=== PATIENT | male | born 1930 | race Caucasian/White ===

== ENCOUNTER 2016-11-25 20:04 | Inpatient (IN) ==
[2016-11-25 21:56] LABS: Basophils # 0.1 K/mcL (0.0-0.2); Basophils % 1.1 %; Eosinophils # 0.2 K/mcL (0.0-0.6); Eosinophils % 3.4 %; Hematocrit 41.7 % (37.5-50.1); Hemoglobin 13.3 g/dL (12.9-16.9); Immature Granulocytes % 0.2 % (0-4); Lymphocytes # 1.1 K/mcL (0.6-4.6); Lymphocytes % 24.6 %; Mean Corpuscular HGB Conc 31.9 g/dL (31.6-35.5); Mean Corpuscular Hemoglobin 29.3 pg (28.0-33.3); Mean Corpuscular Volume 91.9 fL (83.0-100.0); Mean Platelet Volume 9.8 fL (9.4-12.4); Monocytes # 0.3 K/mcL (0.0-1.3); Monocytes % 5.8 %; Neutrophils # 2.9 K/mcL (1.6-8.9); Platelet Count 230 K/mcL (140-400); Red Blood Count 4.54 M/mcL (4.19-5.50); Red Cell Distribution Width 12.5 % (11.5-14.5); Segmented Neutrophils % 64.9 %
[2016-11-25 22:10] LABS: Alanine Aminotransferase 20 Units/L (0-55); Albumin 3.5 g/dL (3.5-5.0); Albumin/Globulin Ratio 1.1 (1.1-2.2); Alkaline Phosphatase 86 Units/L (38-126); Amylase 67 Units/L (25-125); Aspartate Amino Transferase 26 Units/L (5-34); BUN/Creatinine Ratio 14 (6-26); Bilirubin,Direct 0.4 mg/dL (0.0-0.5); Bilirubin,Indirect 0.5 mg/dL (0.0-1.2); Bilirubin,Total 0.9 mg/dL (0.2-1.2); Blood Urea Nitrogen 11 mg/dL (8-26); Calcium 9.5 mg/dL (8.6-10.8); Carbon Dioxide 30 mEq/L (19-29); Chloride 101 mEq/L (98-109); Globulin 3.1 g/dL (2.4-3.5); Glucose 95 mg/dL (70-99); Lipase 24 Units/L (8-78); Osmolality,Calculated 287 (280-300); Potassium 4.1 mEq/L (3.5-4.5); Sodium 139 mEq/L (136-145); Total Protein 6.6 g/dL (6.0-8.3); eGFR For African Americans > 60 (> 60); eGFR For Non-African Americans > 60 (> 60)
[2016-11-26] MEDS ORDERED: Piperacillin/Tazobactam 3.375 GM in D5% in Water (Mini-Bag+) 100 ML IVPB ONE (01:24)
--- NOTE | 2016-11-26 02:24 | Emergency Department Note ---
Disposition Clinical Impression: Bowel perforation, Abdominal abscess Abdominal pain Qualifiers: Abdominal location: generalized Qualified Code(s): R10.84 - Generalized abdominal pain Disposition: Admitted As Inpatient Condition: Good Referrals: NONE,PCP [Primary Care Provider] - Forms: Work/School Release, ED Satisfaction Letter Time of Disposition: 02:29 General Adult HPI - General Chief complaint: ED Abdominal Pain Stated complaint: Infected Colon Time Seen by Provider: 11/26/16 01:00 Source: patient Mode of arrival: ambulatory Limitations: no limitations Nursing Notes Reviewed: Yes Vital Signs Reviewed: Yes - History of Present Illness HPI Narrative: Patient presents emergency room at the request the primary care provider's office. Patient was seen in the facility this afternoon for abdominal discomfort that has been present for several weeks. That CT imaging and labs performed today. There is concerning findings on CT scan may recommend patient come in emergency room. Family denies any other symptoms or complaints. Onset (ago): week(s) Location: abdomen Radiation: abdomen Pain Severity: mild Pain Scale: 3 Quality: aching Consistency: constant Improves with: nothing Worsens with: nothing Associated symptoms: Reports: denies other symptoms Treatments Prior to Arrival: none - Related Data Home Medications Medication Instructions Recorded Confirmed Aspirin [Lo-Dose Aspirin EC] 81 mg PO DAILY 12/04/15 03/28/16 Ferrous Sulfate [Iron] 325 mg PO DAILY 12/04/15 03/28/16 Rosuvastatin [Crestor] 20 mg PO DAILY 01/23/16 03/28/16 Donepezil HCl [Aricept] 5 mg PO QPM 09/11/16 09/11/16 Metoprolol XL (24 HR) Succ [Toprol 12.5 mg PO DAILY 09/11/16 09/11/16 XL] Allergies Allergy/AdvReac Type Severity Reaction Status Date / Time No Known Allergies Allergy Verified 01/20/16 21:55 All systems ED: reviewed and negative except as stated. Review of Systems: As Per HPI Constitutional: Denies: fever, chills, weakness Cardiovascular: Denies: chest pain, palpitations, dyspnea on exertion Respiratory: Denies: cough, dyspnea, wheezes Gastrointestinal: Reports: abdominal pain. Denies: nausea, vomiting, diarrhea Genitourinary: Denies: urgency, dysuria Musculoskeletal: Denies: back pain Neurological: Denies: headache Psychiatric: Denies: anxiety Past Medical History - Past Medical History Attestation: Yes The following information was validated with the patient. Source: patient Medical history: Reports: cancer, coronary artery disease, dementia, hyperlipidemia, hypertension, myocardial infarction Surgical history: Reports: coronary bypass (CABG) Psychiatric history: Reports: no psych history - Social History Smoking Status: Former smoker Smokeless Tobacco Status: No Alcohol use: Reports: occasionally Drug use: Reports: none Physical Exam - General Limitations: no limitations General appearance: alert, in no apparent distress - Head Head exam: atraumatic, normocephalic, normal inspection - Eye Eye exam: Present: normal appearance, PERRL, EOMI - Neck Neck exam: Present: normal inspection, full ROM, trachea midline - Chest Chest inspection: Present: normal inspection, symmetric chest wall rise - Respiratory Respiratory exam: Present: normal lung sounds bilaterally - Cardiovascular Cardiovascular exam: Present: regular rate, normal rhythm, normal heart sounds - Abdominal Exam Abdominal exam: Present: soft, Non-Tender, normal bowel sounds. Absent: tenderness, distention, guarding, rebound, rigidity, Hardy's sign, Rovsing's sign, tenderness at McBurney's Point - Extremities Exam Extremities exam: Present: normal inspection, full ROM. Absent: tenderness, pedal edema - Back Exam Back exam: Present: normal inspection, full ROM. Absent: tenderness - Neurological Exam Neurological exam: Present: alert, oriented X3, CN II-XII intact, normal gait - Skin Skin exam: Present: warm, dry, intact, normal color Course Course Narrative: 86-year-old male presents in emergency room for evaluation of abnormal CT findings. Patient was seen at primary care provider's office today and had imaging ordered as well as labs as an outpatient. He has had history of colon cancer with bowel resection. The family has noted intermittent abdominal discomfort over the last 2-3 weeks. Denied fevers chills nausea vomiting diarrhea. Denied chest pain shortness of breath headache or vision change. The only complaint was intermittent lower abdominal discomfort. Concerned and took him to the primary care provider's office. Labs and CT imaging reviewed by myself. Labs appear to be normal with no significant elevation of blood cell count. CT imaging is concerning for deterioration breakdown/fistula and perforation of the previous bowel anastomosis. There is also concern for lymphadenopathy or abscesses in the right lower quadrant of the abdomen. IV antibiotics and blood cultures were ordered immediately. Fluids to be given as needed. Patient is otherwise stable. Consultation postoperatively senior recruitment consultant surgeon Dr. razo. I reviewed her presentation symptoms history with her. Only recommendation was to add on a CD and laboratory testing and make sure that the patient antibiotics. I have ordered these at this time. Patient to be admitted to her service. We will continue to monitor. In the emergency room until the admission process is completed. Otherwise patient is in no distress resting comfortably in the bed. Physical exam is negative at this point. Lungs are clear heart is patient abdomen is soft nontender nondistended no guarding no rigidity no peritoneal-like symptoms. Vital signs reviewed patient is afebrile. The patient will be admitted to the hospital this time for definitive management. Owens catheter appears to be in good place with urine output at this time. We will continue to monitor here as admission process is completed Vital Signs Temperature 98 F 11/25/16 20:32 Pulse Rate 50 11/25/16 20:32 Respiratory Rate 18 11/25/16 20:32 Blood Pressure 133/71 11/25/16 20:32 O2 Sat by Pulse Oximetry 98 11/25/16 20:32 Temperature 98 F 11/25/16 20:32 Pulse Rate 50 11/26/16 01:55 Respiratory Rate 16 11/26/16 01:55 Blood Pressure 130/69 11/26/16 01:55 O2 Sat by Pulse Oximetry 97 11/26/16 01:55 Oxygen Delivery Oxygen Delivery Room Air Medical Decision Making - MDM Narrative Medical decision making narrative: Abdominal pain, all abscesses , bowel perforation, resection - Medical Records Medical records reviewed: Yes I reviewed the patient's medical records. - Lab Data Lab results reviewed: Yes I reviewed the patient's lab results. Result diagrams: 11/25/16 21:48 11/25/16 21:48 Lab Results 11/25/16 11/25/16 Range/Units 21:48 21:48 WBC 4.5 (4.3-11.1) K/mcL RBC 4.54 (4.19-5.50) M/mcL Hgb 13.3 (12.9-16.9) g/dL Hct 41.7 (37.5-50.1) % MCV 91.9 (83.0-100.0) fL MCH 29.3 (28.0-33.3) pg MCHC 31.9 (31.6-35.5) g/dL RDW 12.5 (11.5-14.5) % Plt Count 230 (140-400) K/mcL MPV 9.8 (9.4-12.4) fL Immature Gran % 0.2 (0-4) % Seg Neutrophils % 64.9 % Lymphocytes % 24.6 % Monocytes % 5.8 % Eosinophils % 3.4 % Basophils % 1.1 % Neutrophils # 2.9 (1.6-8.9) K/mcL Lymphocytes # 1.1 (0.6-4.6) K/mcL Monocytes # 0.3 (0.0-1.3) K/mcL Eosinophils # 0.2 (0.0-0.6) K/mcL Basophils # 0.1 (0.0-0.2) K/mcL Sodium 139 (136-145) mEq/L Potassium 4.1 (3.5-4.5) mEq/L Chloride 101 (98-109) mEq/L Carbon Dioxide 30 H (19-29) mEq/L BUN 11 (8-26) mg/dL Creatinine 0.81 (0.72-1.25) mg/dL Est GFR ( Amer) > 60 (> 60) Est GFR (Non-Af Amer) > 60 (> 60) BUN/Creatinine Ratio 14 (6-26) Glucose 95 (70-99) mg/dL Calculated Osmolality 287 (280-300) Calcium 9.5 (8.6-10.8) mg/dL Total Bilirubin 0.9 (0.2-1.2) mg/dL Direct Bilirubin 0.4 (0.0-0.5) mg/dL Indirect Bilirubin 0.5 (0.0-1.2) mg/dL AST 26 (5-34) Units/L ALT 20 (0-55) Units/L Alkaline Phosphatase 86 (38-126) Units/L Serum Total Protein 6.6 (6.0-8.3) g/dL Albumin 3.5 (3.5-5.0) g/dL Globulin 3.1 (2.4-3.5) g/dL Albumin/Globulin Ratio 1.1 (1.1-2.2) Amylase 67 (25-125) Units/L Lipase 24 (8-78) Units/L - Radiology Data Radiology results reviewed: Yes I reviewed the patient's radiology results. CT imaging revealed see detailed documentation by the radiologist
[2016-11-26 03:05] LABS: Bilirubin,Urine Negative (Negative); Blood,Urine Large (Negative); Clarity,Urine Clear (Clear); Color,Urine Yellow (Yellow); Glucose,Urine (UA) Normal (Normal); Ketones,Urine Negative (Negative); Leukocyte Esterase,Urine Small (Negative); Nitrite,Urine Negative (Negative); Protein,Urine Trace mg/dL (Neg-Trace); Specific Gravity,Urine 1.029 (1.010-1.025); Urobilinogen,Urine Normal (Normal)
[2016-11-26 03:07] LABS: Bacteria,Urine None Seen per hpf (None-Few); Hyaline Casts,Urine None Seen per lpf (None-Few); RBC,Urine TNTC per hpf (0-3); Squamous Epithelial Cell,Urine Many per lpf (None-Few)
[2016-11-26] MEDS: 0.9 % Sodium Chloride 1,000 ML IVC SCH ×2 (06:55→20:06)
[2016-11-26] MEDS ORDERED: *HR* Morphine 2 MG/ML SYRINGE IVP PRN (07:20)
[2016-11-26] MEDS: Pantoprazole 40 MG VIAL IVP SCH (08:48)
[2016-11-26] MEDS ORDERED: Naloxone 0.4 MG/ML INJ IVP PRN (14:32)
[2016-11-26] MEDS ORDERED: Ondansetron 4 MG/2 ML VIAL IVP PRN (14:32)
--- NOTE | 2016-11-26 14:46 | General Surg History&Physical ---
<Cj Lai - Last Filed: 11/26/16 16:53> Date of Encounter: 11/26/16 Time of Encounter: 14:44 Assessment and Plan (1) Abnormal abdominal CT scan Status: Acute No fever or elevated WBCs and completely benign physical exam has us doubt abscess at this time. Surgical intervention is not indicated at this time. We will present the CT to tumor board this Friday for input on if this could be metastatic disease. We will see if the patient tolerates dinner tonight without pain and reevaluate tomorrow. anticipate discharge (2) UTI (urinary tract infection) Status: Acute Started on zosyn Qualifiers: Urinary tract infection type: site unspecified Hematuria presence: without hematuria Qualified Code(s): N39.0 - Urinary tract infection, site not specified (3) Alzheimer's dementia Status: Chronic Chronic problem does make assessment and history gathering somewhat difficult Qualifiers: Alzheimer's disease onset: unspecified onset Dementia behavioral disturbance: without behavioral disturbance Qualified Code(s): G30.9 - Alzheimer's disease, unspecified; F02.80 - Dementia in other diseases classified elsewhere without behavioral disturbance History of Present Illness Chief complaint: UTI/abnormal CT abd/pelv (necrotic lymph node?) HPI: Mr. Fleming is a 86 year old male w/ PMH of colon cancer s/p exploration laparotomy/right colectomy/end-to-end anastomosis by Dr. Hong on 01/21/2016 and remote bladder cancer with local therapy. He presented to his PCP with a bout of abdominal pain just over 1 week ago. He was given antibiotics and an order for CT scan of the abd/pelv. After the first day of cipro, the patient reported improvement of his symptoms. They were called yesterday with the results of the CT scan, which showed inflammatory changes of the right ascending colon with a focal density that could represent perforation vs diverticulum vs postop calcification, as well as an irregularly enhancing centrally cystic lesion that may represent metastatic lymph node vs abscess. They were told to immediately report to the ER. The patient denies any pain at this time. He has not had fever, chills, nausea, vomiting, diarrhea, or constipation. He does have an appetite and is passing flatus, but he has not had a BM in 3-4 days. He denies any specific symptoms at this time, though he is an unreliable historian due to history of Alzheimer's. Most of the history has been collected from his and daughter. Past Med Surg Social Fam HX - Past Medical History Medical history: cancer, coronary artery disease, dementia, hyperlipidemia, hypertension, myocardial infarction Psychiatric history: no psych history - Past Surgical History Surgical History: LE stent(s) - Social History Smoking Status: Former smoker Smokeless Tobacco Status: No Alcohol use: occasionally Drug use: none - Family History Father Living Status: Medications and Allergies Aspirin [Lo-Dose Aspirin EC] 81 mg PO DAILY 12/04/15 [History] Ferrous Sulfate [Iron] 325 mg PO DAILY 12/04/15 [History] Rosuvastatin [Crestor] 20 mg PO DAILY 01/23/16 [History] Donepezil HCl [Aricept] 5 mg PO QPM 09/11/16 [History] Metoprolol XL (24 HR) Succ [Toprol Xl] 12.5 mg PO DAILY 09/11/16 [History] Cholecalciferol (D-3) [Vitamin D] 5,000 unit PO DAILY 11/26/16 [History] Cyanocobalamin (Vitamin B-12) [Vitamin B12] 1,000 mcg PO DAILY 11/26/16 [History ] Ciprofloxacin [Cipro] 500 mg PO BID #10 tablet 11/27/16 [Rx] metroNIDAZOLE [Flagyl] 500 mg PO TID #15 tablet 11/27/16 [Rx] Allergies No Known Allergies Allergy (Verified 01/20/16 21:55) Review of Systems All systems PM: A 10-system review of systems was performed and is negative for pertinent findings except as documented above in the HPI. - Constitutional no anorexia, no fever(s) - Gastrointestinal no abdominal pain, no bloating, no change in bowel habits, no change in stool character, no cramping General Surgery Exam Initial Vital Signs Temp Pulse Resp BP Pulse Ox 98 F 50 18 133/71 98 11/25/16 20:32 11/25/16 20:32 11/25/16 20:32 11/25/16 20:32 11/25/16 20:32 - General physical appearance well developed, no distress, chronically ill - Eyes normal ocular movement - ENT atraumatic, normocephalic - Neck trachea midline - Respiratory normal expansion, normal respiratory effort, clear to auscultation - Cardiovascular Cardiovascular exam: Present: RRR - Abdomen Abdomen general surgery: Present: bowel sounds present, soft, non tender. Absent: distended, masses - Neurologic Present: memory loss, other (difficulty speaking) Results - Labs 11/25/16 21:48 11/25/16 21:48 Abnormal lab results Carbon Dioxide 30 mEq/L (19-29) H 11/25/16 21:48 Ur Specific [place] 1.029 (1.010-1.025) H 11/26/16 02:56 Urine Blood Large (Negative) H 11/26/16 02:56 Ur Leukocyte Esterase Small (Negative) H 11/26/16 02:56 Urine Microscopic RBC TNTC per hpf (0-3) H 11/26/16 02:56 Urine Microscopic WBC 3-5 per hpf (0-3) H 11/26/16 02:56 Ur Squamous Epith Cells Many per lpf (None-Few) H 11/26/16 02:56 Ur Culture Indicated? YES (NO) A 11/26/16 02:56 All other labs normal. - Imaging CT scan - abdomen: report reviewed, image reviewed (IMPRESSION: 1. New changes of partial right colectomy and ileocolonic anastomosis. 2. Inflammatory stranding adjacent to the medial ascending colon with associated focal hyperdensity that could represent extraluminal contrast from perforation, a thin necked diverticulum, or postoperative dystrophic calcification. Given lack of pneumoperitoneum, perforation is considered less likely. 3. 2.9 cm x 0.3 cm x 3.4 cm irregularly enhancing and centrally cystic lesion along the right pelvic sidewall of indeterminate etiology. In the setting of urinary bladder and/or colonic malignancy, this could represent a necrotic metastatic lymph node. However, the appearance is more suggestive of abscess. Although there are nearby colonic diverticula in the setting of severe diverticulosis, there are no definite findings of acute diverticulitis. 4. Findings of cystitis. 5. Cholelithiasis without findings of acute cholecystitis. 6. 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 All questions were answered. patient with previous abdominal pain which has resolved with antibiotics Qualifiers: Abdominal location: right upper quadrant Qualified Code(s): R10.11 - Right upper quadrant pain (2) Abnormal abdominal CT scan Status: Acute The assessment and plan as outlined above was discussed with the patient and/or family members who expressed understanding and agreement. All questions were answered. patients CT findings most likely represent the tail end of an inflammatory event regarding (near) anastomosis which is resolving with antibiotic therapy continue abx prn pain control start diet ok home meds History of Present Illness HPI: Mr. Fleming is a 86 year old male who had abdominal pain in RLQ for 1 week. He went to his PCP who started him on cipro and ordered an outpatient CT scan of the abdomen and pelvis. While taking the antibiotic his pain improved. He had his outpatient CT 11/25/16 which showed inflammation around the anastomosis and the patient was told to report to the ED. His vitals are stable and wbc normal. Past Med Surg Social Fam HX - Past Medical History Source: patient Review of Systems All systems PM: reviewed and no additional remarkable complaints except as stated All systems PM: A 10-system review of systems was performed and is negative for pertinent findings except as documented above in the HPI. General Surgery Exam Initial Vital Signs Temp Pulse Resp BP Pulse Ox 98 F 50 18 133/71 98 11/25/16 20:32 11/25/16 20:32 11/25/16 20:32 11/25/16 20:32 11/25/16 20:32 - General physical appearance well nourished, no distress - Eyes PERRL, normal ocular movement - ENT atraumatic, normocephalic - Respiratory normal expansion, clear to auscultation - Cardiovascular Cardiovascular exam: Present: RRR, no murmurs/rubs/gallops - Abdomen Abdomen general surgery: Present: bowel sounds present, soft, tender (right sided minimally) - Integumentary Integumentary general surgery: Present: warm and dry, no abnormal pigmentation - Neurologic Present: CN 2-12 grossly intact - Musculoskeletal Present: normal gait, normal posture - Psychiatric Psychiatric general surgery: Present: A&Ox3, speech is normal Results - Labs 11/25/16 21:48 11/25/16 21:48 Abnormal lab results Carbon Dioxide 30 mEq/L (19-29) H 11/25/16 21:48 Ur Specific [place] 1.029 (1.010-1.025) H 11/26/16 02:56 Urine Blood Large (Negative) H 11/26/16 02:56 Ur Leukocyte Esterase Small (Negative) H 11/26/16 02:56 Urine Microscopic RBC TNTC per hpf (0-3) H 11/26/16 02:56 Urine Microscopic WBC 3-5 per hpf (0-3) H 11/26/16 02:56 Ur Squamous Epith Cells Many per lpf (None-Few) H 11/26/16 02:56 Ur Culture Indicated? YES (NO) A 11/26/16 02:56 All other labs normal. - Imaging CT scan - abdomen: report reviewed, image reviewed CT scan - pelvis: report reviewed, image reviewed - Attending Attestation I examined this patient and my medical decision-making was reviewed with the Resident Physician. I agree with the documented findings, disposition and treatment plan as described except to the extent set forth below.
[2016-11-26] MEDS: Piperacillin/Tazobactam 3.375 GM in D5% in Water (Mini-Bag+) 100 ML IVPB SCH (15:21)
[2016-11-26] MEDS: *HR* Heparin 5,000 UNIT/ML VIAL SQ SCH (16:53)
[2016-11-27] MEDS: Piperacillin/Tazobactam 3.375 GM in D5% in Water (Mini-Bag+) 100 ML IVPB SCH ×2 (00:24→08:37)
[2016-11-27] MEDS: *HR* Heparin 5,000 UNIT/ML VIAL SQ SCH (05:02)
[2016-11-27] MEDS: Pantoprazole 40 MG VIAL IVP SCH (08:37)
[2016-11-27] MEDS: 0.9 % Sodium Chloride 1,000 ML IVC SCH (08:44)
--- NOTE | 2016-11-27 09:33 | Discharge Summary ---
Date of Encounter: 11/27/16 Time of Encounter: 08:15 - Discharge Diagnosis (1) Abnormal abdominal CT scan Priority: Primary Status: Acute (2) UTI (urinary tract infection) Priority: Secondary Status: Acute Qualifiers: Urinary tract infection type: site unspecified Hematuria presence: without hematuria Qualified Code(s): N39.0 - Urinary tract infection, site not specified (3) Alzheimer's dementia Priority: Secondary Status: Chronic Qualifiers: Alzheimer's disease onset: unspecified onset Dementia behavioral disturbance: without behavioral disturbance Qualified Code(s): G30.9 - Alzheimer's disease, unspecified; F02.80 - Dementia in other diseases classified elsewhere without behavioral disturbance - Discharge Medications Prescriptions: Ciprofloxacin [Cipro] 500 mg PO BID #10 tablet metroNIDAZOLE [Flagyl] 500 mg PO TID #15 tablet Home Medications: Aspirin [Lo-Dose Aspirin EC] 81 mg PO DAILY 12/04/15 [History] Ferrous Sulfate [Iron] 325 mg PO DAILY 12/04/15 [History] Rosuvastatin [Crestor] 20 mg PO DAILY 01/23/16 [History] Donepezil HCl [Aricept] 5 mg PO QPM 09/11/16 [History] Metoprolol XL (24 HR) Succ [Toprol Xl] 12.5 mg PO DAILY 09/11/16 [History] Cholecalciferol (D-3) [Vitamin D] 5,000 unit PO DAILY 11/26/16 [History] Cyanocobalamin (Vitamin B-12) [Vitamin B12] 1,000 mcg PO DAILY 11/26/16 [History ] Ciprofloxacin [Cipro] 500 mg PO BID #10 tablet 11/27/16 [Rx] metroNIDAZOLE [Flagyl] 500 mg PO TID #15 tablet 11/27/16 [Rx] Allergies/Adverse Reactions: Allergies No Known Allergies Allergy (Verified 01/20/16 21:55) General Surgery Exam Initial Vital Signs Temp Pulse Resp BP Pulse Ox 98 F 50 18 133/71 98 11/25/16 20:32 11/25/16 20:32 11/25/16 20:32 11/25/16 20:32 11/25/16 20:32 - General physical appearance well developed, well nourished, no distress - Eyes normal ocular movement - ENT atraumatic, normocephalic - Neck trachea midline - Respiratory normal expansion, normal respiratory effort, clear to auscultation - Cardiovascular Cardiovascular exam: Present: RRR - Abdomen Abdomen general surgery: Present: bowel sounds present, soft, non tender - Genitourinary Present: other (indwelling catheter) - Neurologic Present: memory loss - Musculoskeletal Present: normal posture - Psychiatric Psychiatric general surgery: Present: other (difficulty speaking) Date of admission: 11/26/16 02:40 Primary care physician: Carlo Vaughn MD Discharging clinician: Cj Lai Anticipated date of discharge: 11/27/16 - Patient Status Disposition: Home, Self-Care Condition: Fair Functional capacity at discharge: uses cane/walker Overall status at discharge: patient is back to baseline - Discharge Instructions Follow Up With: Carlo Vaughn MD [Primary Care Provider] - 12/03/16 2:15 pm Additional Instructions: PLEASE CALL YOUR PCP OR REPORT TO THE NEAREST EMERGENCY ROOM WITH ANY CONCERNS OR IF SYMPTOMS RETURN OR WORSEN. - Diet and Activity Activity: resume usual activities as tolerated Diet: advance to your usual diet - Hospital Course Hospital course: Mr. Fleming is a 86 year old male with PMH of colon and bladder cancers, indwelling catheter, and Alzheimer's disease who presented to [facility] with UTI and an abnormal CT scan concerning for abscess vs. metastatic disease. The patient had a recent history of abdominal pain that had resolved with antibiotics. During his brief stay, the patient was given antibiotic therapy and was able to tolerate regular diet. The patient should follow up with his PCP for management of the abnormality on CT. - Time Spent with Patient Total time spent providing and/or coordinating discharge services: Less than 30 minutes Labs on day of discharge: Preliminary micro results at discharge 11/26/16 05:38 Blood Culture - Preliminary Peripheral Venipuncture No growth.
[2016-11-27 10:23] VITALS: BP 103/54
== END 2016-11-27 15:16 | disposition home or self-care (01) | DRG 690 ==
LOC: EMEROO 20:04 → 3NENU 11-26 02:40
PROVIDERS: ADMIT Surgery; ATTEND Surgery

== ENCOUNTER 2018-12-28 08:47 | Observation (INO) ==
--- NOTE | 2018-12-28 10:52 | Internal Med History&Physical ---
Date of Encounter: 12/28/18 Time of Encounter: 10:52 Internal Medicine - H&P: HPI History of present illness: Mr. Fleming is a 88 year old male with history of urine retention with chronic indwelling Owens catheter, dementia, CAD with ME 12 years ago on aspirin presented as a transfer from [place] ED for workup of hematuria. and daughter at bedside provide history as patient has significant dementia unable to provide history. He had cather changed 3 days ago. Yesterday morning noticed hematuria with some blood surrounding insertion site of Owens cath. This morning patient was having complaints of pain around Owens site. He had no fevers/chills, n/v, diaphoresis, change in appetite. At [place] patient was given IV fluids. Owens has been irrigated with large clots removed and now urine is tea-colored in appearance. Past Med Surg Social Fam HX - Past Medical History Medical history: cancer, coronary artery disease, dementia, hyperlipidemia, hypertension, myocardial infarction Additional medical history: Colon Cancer Psychiatric history: no psych history - Past Surgical History Surgical History: LE stent(s) Additional surgical history: lt. knee surgery, hernia repair, bladder tumor removed, heart cath with stents - Social History Smoking Status: Former smoker Smokeless Tobacco Status: No Alcohol use: occasionally Drug use: none - Family History Father Living Status: Internal Medicine - H&P: Meds Aspirin [Lo-Dose Aspirin EC] 81 mg PO DAILY 12/04/15 [History] Ferrous Sulfate [Iron] 325 mg PO DAILY 12/04/15 [History] Rosuvastatin [Crestor] 20 mg PO DAILY 01/23/16 [History] Donepezil HCl [Aricept] 5 mg PO QPM 09/11/16 [History] Metoprolol XL (24 HR) Succ [Toprol Xl] 12.5 mg PO DAILY 09/11/16 [History] Cholecalciferol (D-3) [Vitamin D] 5,000 unit PO DAILY 11/26/16 [History] Cyanocobalamin (Vitamin B-12) [Vitamin B12] 1,000 mcg PO DAILY 11/26/16 [History] Allergy/AdvReac Type Severity Reaction Status Date / Time No Known Allergies Allergy Verified 09/15/18 12:09 ROS unobtainable: due to mental status All Systems PM: A 10-system review of systems was performed and is negative for pertinent findings except as documented above in the HPI. - Constitutional Exam: . - Head Head exam: Present: atraumatic, normocephalic - Eye Eye exam: Present: PERRL, conjuntiva pink, sclera anicteric Pupils: Present: PERRL - Neck Neck exam general surgery: Present: supple, trachea midline. Absent: lymp hadenopathy - Respiratory Respiratory exam: Present: CTAB. Absent: accessory muscle use, rales, rhonchi, wheezes - Cardiovascular Cardiovascular exam: Present: RRR, +S1, +S2. Absent: diastolic murmur, gallop, rubs, systolic murmur - GI/Abdominal GI/Abdominal exam: Present: normal bowel sounds, soft, tenderness (mild TTP in lower quadrants), no peritoneal signs. Absent: distended - exam: Present: normal inspection. Absent: scrotal swelling, testicular tenderness, urethral discharge External exam: Present: normal external exam Additional comments: Owens catheter with tea colored urine, no clots, no purulent drainage. - Extremities Exam Extremities exam: Present: warm, radial pulses palpable and symmetrical. Absent: calf tenderness, cyanotic, pedal edema - Neurological Exam Neurological exam: Present: CN II-XII intact, oriented X3, no focal deficits. Absent: pronater drift, facial droop, speech deficit - Skin Skin exam: Present: dry, intact - Assessment and Plan (1) Hematuria Current Visit: Yes Status: Acute Assessment and plan: Appears to be resolving. No clots in Owens bag at this time as was noted prior to admission. Differentials include traumatic vs UTI. Urinalysis from [place] reviewed. Past cultures reviewed. Patient will be started on Cipro with a repeat urinalysis obtained prior to antibiotics. Follow-up cultures. Urology consulted, recommendations appreciated. Qualifiers: Hematuria type: gross Qualified Code(s): R31.0 - Gross hematuria (2) Acute retention of urine Current Visit: No Status: Acute (3) CAD (coronary artery disease) Current Visit: No Status: Acute Assessment and plan: Resume home aspirin in 1-2 days Resume other home meds after med rec complete. Qualifiers: Coronary Disease-Associated Artery/Lesion type: [place] artery [place] vs. transplanted heart: [place] heart Associated angina: with unspecified angina Qualified Code(s): I25.119 - Atherosclerotic heart disease of [place] coronary artery with unspecified angina pectoris (4) Alzheimer's dementia Current Visit: No Status: Chronic Assessment and plan: Patient at baseline mental status per family at bedside. Qualifiers: Alzheimer's disease onset: unspecified onset Dementia behavioral disturbance: without behavioral disturbance Qualified Code(s): G30.9 - Alzheimer's disease, unspecified; F02.80 - Dementia in other diseases classified elsewhere without behavioral disturbance - Time Spent With Patient Total time spent is greater than 50% in coordination of care (as documented) at patient's floor/unit and/or counseling patient:
--- NOTE | 2018-12-28 11:22 | Urology - Consult Note ---
<Elina Adams N - Last Filed: 12/28/18 11:18> Date of Encounter: 12/28/18 Time of Encounter: 11:18 - Assessment and Plan (1) Hematuria Current Visit: Yes Status: Acute Assessment and plan: Patient is an 88-year-old male who presents with a history of gross hematuria. Vital signs are stable and afebrile. Hemoglobin, white blood cell count and renal function are all reassuring. Patient underwent 16-[place] coude catheter change in the outpatient urology office 3 days ago on 12/25/2018. Catheter change was uneventful. Patient subsequently developed gross hematuria and diffuse abdominal pain. The emergency department irrigated his catheter draining over 1L of retained urine. Patient is currently resting comfortably, and the nursing staff just finished irrigating as well. Urine has improved to transparent, dark yellow. Patient may have experienced bleeding secondary to catheter trauma, and he is likely colonized secondary to his chronic Owens, as his 2 previous cultures from March 2018 in July 2018 were both positive for Staphylococcus aureus and pseudomonas aeruginosa. Clinically, the patient does not appear to be infected, as he is afebrile with baseline mentation. The primary team is planning to start antibiotics and initiate gentle IV fluid hydration. I do not anticipate the need for upsizing catheter or catheter exchange at this time. Dr. Martin will be in to reevaluate patient later this afternoon. Qualifiers: Hematuria type: gross Qualified Code(s): R31.0 - Gross hematuria Urology CN:HPI Consult date: 12/28/18 Requesting physician: Antonio Correa History of present illness: Patient is an 88-year old male well known to our service who presents with gross hematuria and a chronic indwelling Owens catheter. Patient has dementia, and his and daughter have accompanied him and are reliable historians. Patient is established with Dr. Martin and underwent 16-[place] coude Owens catheter exchange 3 days ago in our office. Patient's reports he did very well immediately after catheter insertion, but yesterday morning, she noticed gross blood in catheter tubing. Patient's reports she called EMS when patient began experiencing diffuse lower abdominal pain. On initial evaluation, patient was found to be in clot retention, and his catheter was irrigated at [facility] emergency department. Subsequently drained over 1 L of urine. Patient was transferred to [facility] for further evaluation. Patient takes aspirin 81 mg daily, and his last dose was yesterday morning. Patient has experienced gross hematuria once prior after initial catheter insertion. Currently, patient is sitting upright in bed in no apparent distress, and he denies any fever, chills, flank pain or incontinence. Patient has undergone hand irrigation 2 with return of several small clots. Urine is transparent, tea color and has improved to a dark yellow post irrigation. Past Med Surg Social Fam HX - Past Medical History Medical history: cancer, coronary artery disease, dementia, hyperlipidemia, hypertension, myocardial infarction Additional medical history: Colon Cancer Psychiatric history: no psych history - Past Surgical History Surgical History: LE stent(s) Additional surgical history: lt. knee surgery, hernia repair, bladder tumor removed, heart cath with stents - Social History Smoking Status: Former smoker Smokeless Tobacco Status: No Alcohol use: none Drug use: none - Family History Father Living Status: Medications and Allergies Donepezil HCl [Aricept] 5 mg PO QPM 09/11/16 [History] Metoprolol XL (24 HR) Succ [Toprol Xl] 12.5 mg PO QPM 09/11/16 [History] Cholecalciferol (D-3) [Vitamin D] 5,000 unit PO QAM 11/26/16 [History] Cyanocobalamin (Vitamin B-12) [Vitamin B12] 1,000 mcg PO QAM 11/26/16 [History] Aspirin [Lo-Dose Aspirin EC] 81 mg PO QAM 12/28/18 [History] Ferrous Sulfate [Iron] 325 mg PO QAM 12/28/18 [History] Rosuvastatin Calcium 20 mg PO HS 12/28/18 [History] Allergy/AdvReac Type Severity Reaction Status Date / Time No Known Allergies Allergy Verified 12/28/18 13:26 Review of Systems - Constitutional no chills, no fatigue, no fever(s) - EENT Nose, mouth and throat: no dizziness, no headache(s) - Cardiovascular no chest pain, no diaphoresis, no dyspnea - Respiratory no cough, no dyspnea - Gastrointestinal abdominal pain, no change in bowel habits, no nausea, no vomiting - Genitourinary hematuria, no change in urinary stream, no flank pain, no penile discharge, no scrotal swelling, no testicular pain, no urinary hesitancy, no urinary incontinence, no urinary urgency - Musculoskeletal muscle weakness, no back pain - Integumentary no erythema, no rash - Neurological confusion, no syncope - Psychiatric confusion, no anxiety - Hematologic/Lymphatic no easy bleeding, no easy bruising - Allergic/Immunologic no throat swelling, no wheezing Exam Initial Vital Signs Temp Pulse Resp BP Pulse Ox 98.6 F 50 15 101/66 96 12/28/18 11:09 12/28/18 11:09 12/28/18 11:09 12/28/18 11:09 12/28/18 11:09 - General physical appearance Present: no distress, no pain - Eyes Present: PERRL, normal ocular movement - ENT Present: normal nares, no hearing loss, no congestion - Neck Present: no masses, trachea midline, no lymphadenopathy - Respiratory Present: normal respiratory effort - Cardiovascular Cardiovascular exam IM: bradycardia - Abdomen Abdomen: Present: soft, tender (Periumbilical), suprapubic tenderness. Absent: distended - Genitourinary normal penis with no external lesions, other (Owens catheter indwelling and draining transparent, dark yellow urine into bedside bag) Penis: Present: circumsized Urethral meatis: Present: patent - Integumentary Present: no rash, no abnormal pigmentation - Neurologic Present: disoriented, confused - Musculoskeletal Present: other (normal posture ) Urology Results - Labs All other labs normal. Consult Discharge Plan - Plan Referrals: Carlo Vaughn MD [Primary Care Provider] - <Ruddy Martin - Last Filed: 12/28/18 15:11> Date of Encounter: 12/28/18 - Assessment and Plan (1) UTI (urinary tract infection) Current Visit: No Status: Acute Assessment and plan: Patient was seen and examined independently. I agree with the plan as written by Elina Adams. At the time of evaluation the patient's urine has dramatic ally cleared to clear in the urine tubing. At this point I believe the patient's hematuria is most likely related to a UTI. Recommend to continue broad-spectrum antimicrobial coverage until cultures return. We will continue to follow along closely. No indication at this time to change catheter. Qualifiers: Urinary tract infection type: acute cystitis Hematuria presence: with hematuria Qualified Code(s): N30.01 - Acute cystitis with hematuria Exam Initial Vital Signs Temp Pulse Resp BP Pulse Ox 98.6 F 50 15 101/66 96 12/28/18 11:09 12/28/18 11:09 12/28/18 11:09 12/28/18 11:09 12/28/18 11:09 Urology Results - Labs 12/28/18 12:55 12/28/18 11:43 Abnormal lab results RBC 3.90 M/mcL (4.19-5.50) L 12/28/18 12:55 Hgb 12.6 g/dL (12.9-16.9) L 12/28/18 12:55 Plt Count 131 K/mcL (140-400) L 12/28/18 12:55 Carbon Dioxide 31 mEq/L (23-29) H 12/28/18 11:43 Diabetes panel 12/28/18 Range/Units 11:43 Sodium 139 (136-145) mEq/L Potassium 4.1 (3.5-5.1) mEq/L Chloride 102 (98-107) mEq/L Carbon Dioxide 31 H (23-29) mEq/L BUN 12 (8-23) mg/dL Creatinine 0.79 (0.70-1.30) mg/dL Glucose 101 (70-105) mg/dL Calcium 8.9 (8.6-10.3) mg/dL Calcium panel 12/28/18 Range/Units 11:43 Calcium 8.9 (8.6-10.3) mg/dL Pituitary panel 12/28/18 Range/Units 11:43 Sodium 139 (136-145) mEq/L Potassium 4.1 (3.5-5.1) mEq/L Chloride 102 (98-107) mEq/L Carbon Dioxide 31 H (23-29) mEq/L BUN 12 (8-23) mg/dL Creatinine 0.79 (0.70-1.30) mg/dL Glucose 101 (70-105) mg/dL Calcium 8.9 (8.6-10.3) mg/dL Adrenal panel 12/28/18 Range/Units 11:43 Sodium 139 (136-145) mEq/L Potassium 4.1 (3.5-5.1) mEq/L Chloride 102 (98-107) mEq/L Carbon Dioxide 31 H (23-29) mEq/L BUN 12 (8-23) mg/dL Creatinine 0.79 (0.70-1.30) mg/dL Glucose 101 (70-105) mg/dL Calcium 8.9 (8.6-10.3) mg/dL All other labs normal.
[2018-12-28] MEDS ORDERED: Naloxone 0.4 MG/ML INJ IVP PRN (11:41)
[2018-12-28] MEDS ORDERED: 0.9 % Sodium Chloride w KCl 20 MEQ/1,000 ML MLS IVC SCH (11:45)
[2018-12-28 13:17] LABS: Basophils % 0.6 %; Eosinophils % 0.4 %; Hematocrit 37.9 % (37.5-50.1); Hemoglobin 12.6 g/dL (12.9-16.9); Immature Granulocytes % 0.2 % (0-4); Lymphocytes # 0.9 K/mcL (0.6-4.6); Lymphocytes % 16.3 %; Mean Corpuscular HGB Conc 33.2 g/dL (31.6-35.5); Mean Corpuscular Hemoglobin 32.3 pg (28.0-33.3); Mean Corpuscular Volume 97.2 fL (83.0-100.0); Mean Platelet Volume 10.5 fL (9.4-12.4); Monocytes # 0.4 K/mcL (0.0-1.3); Monocytes % 7.1 %; Neutrophils # 3.9 K/mcL (1.6-8.9); Platelet Count 131 K/mcL (140-400); Red Cell Distribution Width 12.7 % (11.5-14.5); Segmented Neutrophils % 75.4 %; White Blood Count 5.2 K/mcL (4.3-11.1)
[2018-12-28 13:36] LABS: BUN/Creatinine Ratio 15 (6-26); Blood Urea Nitrogen 12 mg/dL (8-23); Calcium 8.9 mg/dL (8.6-10.3); Carbon Dioxide 31 mEq/L (23-29); Chloride 102 mEq/L (98-107); Glucose 101 mg/dL (70-105); Osmolality,Calculated 288 (280-300); Potassium 4.1 mEq/L (3.5-5.1); Sodium 139 mEq/L (136-145); eGFR For African Americans > 60 (> 60); eGFR For Non-African Americans > 60 (> 60)
[2018-12-28] MEDS ORDERED: Acetaminophen 325 MG TABLET PO PRN (14:31)
[2018-12-28] MEDS ORDERED: Metoprolol XL (24 HR) Succ 25 MG TAB.ER.24H PO SCH (18:00)
--- NOTE | 2018-12-29 06:47 | Urology Progress Note ---
Date of Encounter: 12/29/18 Time of Encounter: 06:45 - Assessment and Plan (1) UTI (urinary tract infection) Current Visit: No Status: Acute Assessment and plan: Patient with likely UTI with gross hematuria. Hematuria has resolved. Recommend 2 week course of current antibiotics. Okay to discharge from urology standpoint. Please call with any questions. Patient already has appointment scheduled with urology for catheter change. Do have some concerns from a confusion/Alzheimer's standpoint about the patient returning to his home. I discussed this with the daughter. She states that she will discuss these concerns with her other sister and mother. Qualifiers: Urinary tract infection type: acute cystitis Hematuria presence: with hematuria Qualified Code(s): N30.01 - Acute cystitis with hematuria Progress Note Narrative: Patient seen this morning. According to the patient's daughter patient had multiple issues overnight with confusion and biting her. Patient's urine has cleared. Objective Initial Vital Signs Temp Pulse Resp BP Pulse Ox 98.6 F 50 15 101/66 96 12/28/18 11:09 12/28/18 11:09 12/28/18 11:09 12/28/18 11:12/28/18 11:09 - General physical appearance Present: well developed, other (Significant confusion) - Abdomen Present: soft. Absent: tender - Genitourinary Present: other (Clear urine in catheter tubing) - Labs 12/28/18 12:55 12/28/18 11:43 Diabetes panel 12/28/18 Range/Units 11:43 Sodium 139 (136-145) mEq/L Potassium 4.1 (3.5-5.1) mEq/L Chloride 102 (98-107) mEq/L Carbon Dioxide 31 H (23-29) mEq/L BUN 12 (8-23) mg/dL Creatinine 0.79 (0.70-1.30) mg/dL Glucose 101 (70-105) mg/dL Calcium 8.9 (8.6-10.3) mg/dL Calcium panel 12/28/18 Range/Units 11:43 Calcium 8.9 (8.6-10.3) mg/dL Pituitary panel 12/28/18 Range/Units 11:43 Sodium 139 (136-145) mEq/L Potassium 4.1 (3.5-5.1) mEq/L Chloride 102 (98-107) mEq/L Carbon Dioxide 31 H (23-29) mEq/L BUN 12 (8-23) mg/dL Creatinine 0.79 (0.70-1.30) mg/dL Glucose 101 (70-105) mg/dL Calcium 8.9 (8.6-10.3) mg/dL Adrenal panel 12/28/18 Range/Units 11:43 Sodium 139 (136-145) mEq/L Potassium 4.1 (3.5-5.1) mEq/L Chloride 102 (98-107) mEq/L Carbon Dioxide 31 H (23-29) mEq/L BUN 12 (8-23) mg/dL Creatinine 0.79 (0.70-1.30) mg/dL Glucose 101 (70-105) mg/dL Calcium 8.9 (8.6-10.3) mg/dL Consult Discharge Plan - Plan Referrals: Carlo Vaughn MD [Primary Care Provider] -
[2018-12-29 11:10] VITALS: BP 115/63
--- NOTE | 2018-12-29 13:50 | Discharge Summary ---
- NOTES TO OUTPATIENT PROVIDER Notes to Outpatient Provider: Patient will need to follow up with urology in 1-2 weeks. Donepezil held given patient on ciprofloxacin for now. Date of Encounter: 12/29/18 Time of Encounter: 13:46 - Discharge Diagnosis (1) CAD (coronary artery disease) Priority: Secondary Status: Acute Qualifiers: Coronary Disease-Associated Artery/Lesion type: [place] artery [place] vs. transplanted heart: [place] heart Associated angina: with unspecified angina Qualified Code(s): I25.119 - Atherosclerotic heart disease of [place] coronary artery with unspecified angina pectoris (2) Alzheimer's dementia Priority: Secondary Status: Chronic Qualifiers: Alzheimer's disease onset: unspecified onset Dementia behavioral disturbance: without behavioral disturbance Qualified Code(s): G30.9 - Alzheimer's disease, unspecified; F02.80 - Dementia in other diseases classified elsewhere without behavioral disturbance (3) Acute retention of urine Priority: Primary Status: Acute (4) Hematuria Priority: Primary Status: Acute Qualifiers: Hematuria type: gross Qualified Code(s): R31.0 - Gross hematuria (5) UTI (urinary tract infection) Priority: Primary Status: Acute Qualifiers: Urinary tract infection type: acute cystitis Hematuria presence: with hematuria Qualified Code(s): N30.01 - Acute cystitis with hematuria Hospital course: Mr. Fleming is a 88 year old male with past medical history of CAD, dementia, hypertension, CAD came in with blood in urine found to have UTI. Patient was seen by urology for chronic indwelling [place] and hematuria. Patient was started on IV fluids and empiric ciprofloxacin. Catheter was changed by urology as outpatient recently. Bleeding might have been related to some trauma along with component of UTI. Discussed with family who wanted to take patient home with home health care which was arranged on discharge. Patient was prescribed 12 more days of antibiotics to finish 2 weeks course. Donepezil will be held while on ciprofloxacin. Discharge discussed with: patient, nurse - Time Spent with Patient Total time spent providing and/or coordinating discharge services: Time spent: Greater than 30 minutes (40) - Discharge Medications Prescriptions: New Ciprofloxacin [Cipro] 500 mg PO DAILY 12 Days #12 tablet Continued Metoprolol XL (24 HR) Succ [Toprol Xl] 12.5 mg PO QPM Cholecalciferol (D-3) [Vitamin D] 5,000 unit PO QAM Cyanocobalamin (Vitamin B-12) [Vitamin B12] 1,000 mcg PO QAM Aspirin [Lo-Dose Aspirin EC] 81 mg PO QAM Ferrous Sulfate [Iron] 325 mg PO QAM Rosuvastatin Calcium 20 mg PO HS Discontinued Donepezil HCl [Aricept] 5 mg PO QPM Home Medications: Metoprolol XL (24 HR) Succ [Toprol Xl] 12.5 mg PO QPM 09/11/16 [History] Cholecalciferol (D-3) [Vitamin D] 5,000 unit PO QAM 11/26/16 [History] Cyanocobalamin (Vitamin B-12) [Vitamin B12] 1,000 mcg PO QAM 11/26/16 [History] Aspirin [Lo-Dose Aspirin EC] 81 mg PO QAM 12/28/18 [History] Ferrous Sulfate [Iron] 325 mg PO QAM 12/28/18 [History] Rosuvastatin Calcium 20 mg PO HS 12/28/18 [History] Ciprofloxacin [Cipro] 500 mg PO DAILY 12 Days #12 tablet 12/29/18 [Rx] Allergies/Adverse Reactions: Allergy/AdvReac Type Severity Reaction Status Date / Time No Known Allergies Allergy Verified 12/28/18 13:26 Date of admission: 12/28/18 09:45 Primary care physician: Carlo Vaughn MD Consults: 12/28/18 11:45 Consult to Urology [CONS] Routine Consulting Provider: [facility] [place] Reason for Consult: hematuria Call Completed: Yes Discharging clinician: Flora Wiseman [place] - Constitutional Vitals: Temp Pulse Resp BP Pulse Ox 98.2 F 50 18 115/63 96 12/29/18 11:09 12/29/18 11:12/29/18 11:12/29/18 11:12/29/18 11:09 Exam: General: In no acute distress. confused Respiratory exam: CTAB. no accessory muscle use, rales, rhonchi, wheezes Cardiovascular exam: RRR, +S1, +S2. no murmur, gallop, rubs. GI/Abdominal exam: Non-tender, Non-distended, normal bowel sounds, soft, no peritoneal signs. [place] in place Extremities exam: no pedal edema, pulses palpable in b/l lower extremities. no calf tenderness Neurological exam: no focal deficits. AOx1, Limited exam due to dementia Skin exam: No skin rash - Patient Status Disposition: Home Health Service - Discharge Instructions Follow Up With: Carlo Vaughn MD [Primary Care Provider] - - Diet and Activity Activity: as per physical therapy
--- NOTE | 2018-12-29 13:56 | Physician Discharge Referral ---
Home Health/Hosp Referral Info Transfer to: Home Health - Diagnosis (1) CAD (coronary artery disease) Status: Acute (2) Alzheimer's dementia Status: Chronic (3) Acute retention of urine Status: Acute (4) Hematuria Status: Acute (5) UTI (urinary tract infection) Status: Acute - Respiratory Orders Smoking Cessation: Smoking cessation has been advised. For more information, call the [place] Tobacco Quit Line at 8-250-EEEG-NOW. - Services Needed Following services are medically necessary services: Nursing, Home Health Aide, Physical Therapy, Occupational Therapy - Transfer Medications Prescriptions: Ciprofloxacin [Cipro] 500 mg PO DAILY 12 Days #12 tablet Home Medications: Metoprolol XL (24 HR) Succ [Toprol Xl] 12.5 mg PO QPM 09/11/16 [History] Cholecalciferol (D-3) [Vitamin D] 5,000 unit PO QAM 11/26/16 [History] Cyanocobalamin (Vitamin B-12) [Vitamin B12] 1,000 mcg PO QAM 11/26/16 [History] Aspirin [Lo-Dose Aspirin EC] 81 mg PO QAM 12/28/18 [History] Ferrous Sulfate [Iron] 325 mg PO QAM 12/28/18 [History] Rosuvastatin Calcium 20 mg PO HS 12/28/18 [History] Ciprofloxacin [Cipro] 500 mg PO DAILY 12 Days #12 tablet 12/29/18 [Rx] Allergies/Adverse Reactions: Allergy/AdvReac Type Severity Reaction Status Date / Time No Known Allergies Allergy Verified 12/28/18 13:26 Certification: Further, I certify that my clinical findings support that this patient is homebound (i.e. absences from home require considerable and taxing effort and are for medical reasons or taoism services or infrequently or short duration when for other reasons) because: Homebound Reason: Patient requires assistance of a person or device to safely leave home Attestation: My signature below is to certify that this patient is under my care and that I, or nurse practitioner, or a physician's ophthalmology assistant working with me, has a [id number] encounter with this patient.
== END 2018-12-29 15:14 | disposition home health service (06) ==
LOC: 3ANU → SUATTDRO 09:45
PROVIDERS: ADMIT Student in an Organized Health Care Education/Training Program; ATTEND Internal Medicine

== ENCOUNTER 2019-03-15 11:07 | Inpatient (IN) ==
[2019-03-15] MEDS ORDERED: 0.9 % Sodium Chloride 1,000 ML IVC ONE (11:18)
[2019-03-15 11:37] LABS: Bilirubin,Urine Negative (Negative); Blood,Urine Trace (Negative); Clarity,Urine Cloudy (Clear); Color,Urine Yellow (Yellow); Glucose,Urine (UA) Normal (Normal); Ketones,Urine Negative (Negative); Leukocyte Esterase,Urine Large (Negative); Nitrite,Urine Positive (Negative); PH,Urine 5.5 pH Units (5.0-8.0); Protein,Urine Negative (Neg-Trace); Specific Gravity,Urine 1.025 (1.010-1.025); Urobilinogen,Urine Normal (Normal)
[2019-03-15 11:39] LABS: Hyaline Casts,Urine None Seen per lpf (None-Few); Squamous Epithelial Cell,Urine Moderate per lpf (None-Few); WBC,Urine 50-100 per hpf (0-3)
[2019-03-15 11:50] LABS: Calcium Oxalate Crystals,Urine Present
[2019-03-15 11:51] LABS: Bacteria,Urine Moderate per hpf (None-Few); RBC,Urine 0-3 per hpf (0-3)
[2019-03-15 11:52] LABS: Basophils % 0.3 %; Eosinophils % 1.1 %; Hematocrit 29.9 % (37.5-50.1); Hemoglobin 10.1 g/dL (12.9-16.9); Immature Granulocytes % 0.5 % (0-4); Lymphocytes # 0.6 K/mcL (0.6-4.6); Lymphocytes % 14.6 %; Mean Corpuscular HGB Conc 33.8 g/dL (31.6-35.5); Mean Corpuscular Hemoglobin 32.9 pg (28.0-33.3); Mean Corpuscular Volume 97.4 fL (83.0-100.0); Mean Platelet Volume 10.6 fL (9.4-12.4); Monocytes # 0.3 K/mcL (0.0-1.3); Monocytes % 8.8 %; Neutrophils # 2.8 K/mcL (1.6-8.9); Platelet Count 116 K/mcL (140-400); Red Blood Count 3.07 M/mcL (4.19-5.50); Red Cell Distribution Width 12.9 % (11.5-14.5); Segmented Neutrophils % 74.7 %; White Blood Count 3.8 K/mcL (4.3-11.1)
[2019-03-15 11:57] LABS: INR 1.1; Prothrombin Time 12.4 Seconds (9.4-12.1)
[2019-03-15] MEDS ORDERED: Piperacillin/Tazobactam 3.375 GM in 0.9 % Sodium Chloride Mini Bag 100 ML IVPB ONE (12:11)
[2019-03-15 12:14] LABS: Alanine Aminotransferase 14 Units/L (7-52); Albumin 3.1 g/dL (3.5-5.7); Albumin/Globulin Ratio 2.1 (1.1-2.2); Alkaline Phosphatase 49 Units/L (34-104); Aspartate Amino Transferase 15 Units/L (13-39); BUN/Creatinine Ratio 33 (6-26); Bilirubin,Total 1.1 mg/dL (0.3-1.0); Blood Urea Nitrogen 25 mg/dL (8-23); Calcium 8.1 mg/dL (8.6-10.3); Carbon Dioxide 28 mEq/L (23-29); Chloride 107 mEq/L (98-107); Globulin 1.5 g/dL (2.4-3.5); Glucose 95 mg/dL (70-105); Osmolality,Calculated 294 (280-300); Potassium 3.8 mEq/L (3.5-5.1); Sodium 140 mEq/L (136-145); Total Protein 4.6 g/dL (6.4-8.9); Troponin I < 0.03 ng/mL (< 0.04); eGFR For African Americans > 60 (> 60); eGFR For Non-African Americans > 60 (> 60)
[2019-03-15] MEDS ORDERED: Pantoprazole 40 MG VIAL IVP ONE (12:44)
[2019-03-15] MEDS ORDERED: Naloxone 0.4 MG/ML INJ IVP PRN (13:30)
[2019-03-15] MEDS: MetroNIDAZOLE 500 MG/100 ML 500 MG/100 ML BAG IVPB SCH (16:00)
[2019-03-15] MEDS: 0.9 % Sodium Chloride 1,000 ML IVC SCH (16:00)
[2019-03-15] MEDS: Cefepime HCl 1,000 MG in Water for inj. (sterile) 10 ML IVP SCH (17:20)
[2019-03-15] MEDS: Pantoprazole 40 MG VIAL IVP SCH (17:21)
[2019-03-15] MEDS ORDERED: Metoprolol XL (24 HR) Succ 25 MG TAB.ER.24H PO SCH (18:00)
[2019-03-15 19:40] LABS: Basophils % 0.5 %; Eosinophils % 0.8 %; Hematocrit 27.2 % (37.5-50.1); Hemoglobin 8.7 g/dL (12.9-16.9); Immature Granulocytes % 0.5 % (0-4); Lymphocytes # 0.6 K/mcL (0.6-4.6); Lymphocytes % 16.1 %; Mean Corpuscular Hemoglobin 32.1 pg (28.0-33.3); Mean Corpuscular Volume 100.4 fL (83.0-100.0); Mean Platelet Volume 10.6 fL (9.4-12.4); Monocytes # 0.3 K/mcL (0.0-1.3); Monocytes % 8.2 %; Neutrophils # 2.9 K/mcL (1.6-8.9); Platelet Count 102 K/mcL (140-400); Red Blood Count 2.71 M/mcL (4.19-5.50); Segmented Neutrophils % 73.9 %; White Blood Count 3.9 K/mcL (4.3-11.1)
[2019-03-16] MEDS: MetroNIDAZOLE 500 MG/100 ML 500 MG/100 ML BAG IVPB SCH ×3 (00:06→16:06)
[2019-03-16] MEDS: 0.9 % Sodium Chloride 1,000 ML IVC SCH ×3 (02:44→20:30)
[2019-03-16] MEDS: Pantoprazole 40 MG VIAL IVP SCH ×2 (05:35→17:25)
[2019-03-16] MEDS: Cefepime HCl 1,000 MG in Water for inj. (sterile) 10 ML IVP SCH ×2 (05:35→17:24)
[2019-03-16 06:54] LABS: Basophils % 0.5 %; Eosinophils % 0.8 %; Hematocrit 26.4 % (37.5-50.1); Hemoglobin 8.5 g/dL (12.9-16.9); Immature Granulocytes % 0.3 % (0-4); Lymphocytes # 0.5 K/mcL (0.6-4.6); Lymphocytes % 13.2 %; Mean Corpuscular HGB Conc 32.2 g/dL (31.6-35.5); Mean Corpuscular Hemoglobin 32.4 pg (28.0-33.3); Mean Corpuscular Volume 100.8 fL (83.0-100.0); Mean Platelet Volume 10.7 fL (9.4-12.4); Monocytes # 0.4 K/mcL (0.0-1.3); Monocytes % 9.1 %; Platelet Count 117 K/mcL (140-400); Red Blood Count 2.62 M/mcL (4.19-5.50); Segmented Neutrophils % 76.1 %
[2019-03-16 07:15] LABS: BUN/Creatinine Ratio 25 (6-26); Blood Urea Nitrogen 19 mg/dL (8-23); Calcium 8.1 mg/dL (8.6-10.3); Carbon Dioxide 26 mEq/L (23-29); Chloride 107 mEq/L (98-107); Glucose 137 mg/dL (70-105); Magnesium 1.5 mg/dL (1.6-2.6); Osmolality,Calculated 294 (280-300); Phosphorous 2.4 mg/dL (2.7-4.5); Potassium 3.3 mEq/L (3.5-5.1); Sodium 140 mEq/L (136-145); eGFR For African Americans > 60 (> 60); eGFR For Non-African Americans > 60 (> 60)
[2019-03-16] MEDS: Cholecalciferol (D-3) 1,000 UNIT (25MCG) TABLET PO SCH (07:19)
[2019-03-16] MEDS: Cyanocobalamin (B-12) 1,000 MCG TABLET PO SCH (07:19)
[2019-03-16] MEDS ORDERED: Potassium Chloride 20 MEQ, Lidocaine 1% 2 ML in 0.9 % Sodium Chloride 250 ML IVPB ONE (08:38)
[2019-03-16] MEDS ORDERED: *HR* Propofol 200 MG/20 ML VIAL IVP ONE ×2 (10:27→12:18)
[2019-03-16] MEDS ORDERED: Lidocaine -MPF 2% 2 ML VIAL ONE (10:28)
[2019-03-16] MEDS ORDERED: 0.9 % Sodium Chloride 1,000 ML IVC SCH (11:45)
[2019-03-16] MEDS ORDERED: EPHEDrine 50 MG/ML VIAL ONE (11:58)
[2019-03-17] MEDS: Pantoprazole 40 MG VIAL IVP SCH ×2 (05:29→17:49)
[2019-03-17] MEDS: Cefepime HCl 1,000 MG in Water for inj. (sterile) 10 ML IVP SCH ×2 (05:29→17:49)
[2019-03-17] MEDS ORDERED: Melatonin 3 MG TABLET PO PRN (05:43)
[2019-03-17 06:36] LABS: Basophils % 0.5 %; Eosinophils % 0.7 %; Hematocrit 21.1 % (37.5-50.1); Hemoglobin 6.8 g/dL (12.9-16.9); Immature Granulocytes % 0.2 % (0-4); Lymphocytes # 0.5 K/mcL (0.6-4.6); Lymphocytes % 11.3 %; Mean Corpuscular HGB Conc 32.2 g/dL (31.6-35.5); Mean Corpuscular Hemoglobin 32.4 pg (28.0-33.3); Mean Corpuscular Volume 100.5 fL (83.0-100.0); Mean Platelet Volume 11.2 fL (9.4-12.4); Monocytes # 0.4 K/mcL (0.0-1.3); Monocytes % 8.8 %; Neutrophils # 3.5 K/mcL (1.6-8.9); Platelet Count 102 K/mcL (140-400); Red Cell Distribution Width 13.3 % (11.5-14.5); Segmented Neutrophils % 78.5 %; White Blood Count 4.4 K/mcL (4.3-11.1)
[2019-03-17 06:49] LABS: BUN/Creatinine Ratio 13 (6-26); Blood Urea Nitrogen 9 mg/dL (8-23); Calcium 7.7 mg/dL (8.6-10.3); Carbon Dioxide 27 mEq/L (23-29); Chloride 109 mEq/L (98-107); Glucose 99 mg/dL (70-105); Magnesium 1.7 mg/dL (1.6-2.6); Osmolality,Calculated 291 (280-300); Phosphorous 2.5 mg/dL (2.7-4.5); Potassium 3.4 mEq/L (3.5-5.1); Sodium 141 mEq/L (136-145); eGFR For African Americans > 60 (> 60); eGFR For Non-African Americans > 60 (> 60)
[2019-03-17] MEDS ORDERED: 0.9 % Sodium Chloride 500 ML ONE ×2 (09:53→10:12)
[2019-03-17] MEDS: Cyanocobalamin (B-12) 1,000 MCG TABLET PO SCH (10:03)
[2019-03-17] MEDS: Cholecalciferol (D-3) 1,000 UNIT (25MCG) TABLET PO SCH (10:04)
[2019-03-17] MEDS ORDERED: Haloperidol Lactate 5 MG/ML VIAL IVP ONE (10:37)
[2019-03-17] MEDS ORDERED: 0.9 % Sodium Chloride 250 ML ONE (14:03)
[2019-03-17] MEDS: 0.9 % Sodium Chloride 1,000 ML IVC SCH ×2 (17:48→17:50)
[2019-03-17 19:40] LABS: Hematocrit 30.5 % (37.5-50.1)
[2019-03-17 19:43] LABS: Hemoglobin 10.4 g/dL (12.9-16.9)
[2019-03-18 01:55] LABS: Basophils % 0.8 %; Eosinophils # 0.1 K/mcL (0.0-0.6); Eosinophils % 2.6 %; Hematocrit 29.1 % (37.5-50.1); Hemoglobin 9.6 g/dL (12.9-16.9); Immature Granulocytes % 0.3 % (0-4); Lymphocytes # 0.5 K/mcL (0.6-4.6); Lymphocytes % 12.5 %; Mean Corpuscular Hemoglobin 31.3 pg (28.0-33.3); Mean Corpuscular Volume 94.8 fL (83.0-100.0); Mean Platelet Volume 11.3 fL (9.4-12.4); Monocytes # 0.4 K/mcL (0.0-1.3); Monocytes % 10.7 %; Neutrophils # 2.8 K/mcL (1.6-8.9); Red Blood Count 3.07 M/mcL (4.19-5.50); Red Cell Distribution Width 15.3 % (11.5-14.5); Segmented Neutrophils % 73.1 %; White Blood Count 3.8 K/mcL (4.3-11.1)
[2019-03-18 01:56] LABS: Platelet Count 95 K/mcL (140-400)
[2019-03-18 02:11] LABS: BUN/Creatinine Ratio 9 (6-26); Blood Urea Nitrogen 6 mg/dL (8-23); Calcium 7.9 mg/dL (8.6-10.3); Carbon Dioxide 26 mEq/L (23-29); Chloride 111 mEq/L (98-107); Glucose 92 mg/dL (70-105); Magnesium 1.7 mg/dL (1.6-2.6); Osmolality,Calculated 289 (280-300); Phosphorous 2.7 mg/dL (2.7-4.5); Potassium 3.6 mEq/L (3.5-5.1); Sodium 141 mEq/L (136-145); eGFR For African Americans > 60 (> 60); eGFR For Non-African Americans > 60 (> 60)
[2019-03-18] MEDS: 0.9 % Sodium Chloride 1,000 ML IVC SCH ×3 (04:21→14:36)
[2019-03-18] MEDS: Cefepime HCl 1,000 MG in Water for inj. (sterile) 10 ML IVP SCH (06:29)
[2019-03-18] MEDS: Pantoprazole 40 MG VIAL IVP SCH ×2 (06:29→17:41)
[2019-03-18] MEDS: Cholecalciferol (D-3) 1,000 UNIT (25MCG) TABLET PO SCH (08:49)
[2019-03-18] MEDS: Cyanocobalamin (B-12) 1,000 MCG TABLET PO SCH (08:49)
[2019-03-18 18:49] LABS: Hematocrit 31.8 % (37.5-50.1); Hemoglobin 10.5 g/dL (12.9-16.9)
[2019-03-19] MEDS: 0.9 % Sodium Chloride 1,000 ML IVC SCH ×2 (00:18→10:49)
[2019-03-19 05:25] LABS: Basophils % 0.3 %; Eosinophils # 0.1 K/mcL (0.0-0.6); Eosinophils % 1.5 %; Hematocrit 31.6 % (37.5-50.1); Hemoglobin 10.4 g/dL (12.9-16.9); Immature Granulocytes % 0.2 % (0-4); Lymphocytes # 0.4 K/mcL (0.6-4.6); Lymphocytes % 5.8 %; Mean Corpuscular HGB Conc 32.9 g/dL (31.6-35.5); Mean Corpuscular Hemoglobin 31.4 pg (28.0-33.3); Mean Corpuscular Volume 95.5 fL (83.0-100.0); Mean Platelet Volume 10.9 fL (9.4-12.4); Monocytes # 0.5 K/mcL (0.0-1.3); Platelet Count 106 K/mcL (140-400); Red Blood Count 3.31 M/mcL (4.19-5.50); Red Cell Distribution Width 14.5 % (11.5-14.5); Segmented Neutrophils % 83.2 %
[2019-03-19] MEDS: Pantoprazole 40 MG VIAL IVP SCH (05:38)
[2019-03-19 05:43] LABS: BUN/Creatinine Ratio 8 (6-26); Blood Urea Nitrogen 5 mg/dL (8-23); Calcium 8.3 mg/dL (8.6-10.3); Carbon Dioxide 28 mEq/L (23-29); Chloride 105 mEq/L (98-107); Glucose 105 mg/dL (70-105); Magnesium 1.6 mg/dL (1.6-2.6); Osmolality,Calculated 288 (280-300); Phosphorous 2.6 mg/dL (2.7-4.5); Potassium 3.7 mEq/L (3.5-5.1); Sodium 140 mEq/L (136-145); eGFR For African Americans > 60 (> 60); eGFR For Non-African Americans > 60 (> 60)
[2019-03-19] MEDS: Cholecalciferol (D-3) 1,000 UNIT (25MCG) TABLET PO SCH (11:12)
[2019-03-19] MEDS: Cyanocobalamin (B-12) 1,000 MCG TABLET PO SCH (11:12)
[2019-03-20 07:42] LABS: Basophils % 0.2 %; Eosinophils # 0.1 K/mcL (0.0-0.6); Eosinophils % 1.4 %; Hematocrit 30.9 % (37.5-50.1); Hemoglobin 10.5 g/dL (12.9-16.9); Immature Granulocytes % 0.4 % (0-4); Lymphocytes # 0.6 K/mcL (0.6-4.6); Mean Corpuscular Hemoglobin 31.6 pg (28.0-33.3); Mean Corpuscular Volume 93.1 fL (83.0-100.0); Mean Platelet Volume 10.6 fL (9.4-12.4); Monocytes # 0.5 K/mcL (0.0-1.3); Monocytes % 8.7 %; Neutrophils # 4.5 K/mcL (1.6-8.9); Platelet Count 117 K/mcL (140-400); Red Blood Count 3.32 M/mcL (4.19-5.50); Segmented Neutrophils % 79.3 %; White Blood Count 5.6 K/mcL (4.3-11.1)
[2019-03-20 08:03] LABS: BUN/Creatinine Ratio 16 (6-26); Blood Urea Nitrogen 9 mg/dL (8-23); Calcium 8.4 mg/dL (8.6-10.3); Carbon Dioxide 27 mEq/L (23-29); Chloride 100 mEq/L (98-107); Glucose 106 mg/dL (70-105); Magnesium 1.6 mg/dL (1.6-2.6); Osmolality,Calculated 279 (280-300); Phosphorous 2.4 mg/dL (2.7-4.5); Potassium 3.6 mEq/L (3.5-5.1); Sodium 135 mEq/L (136-145); eGFR For African Americans > 60 (> 60); eGFR For Non-African Americans > 60 (> 60)
[2019-03-20] MEDS: Cholecalciferol (D-3) 1,000 UNIT (25MCG) TABLET PO SCH (10:31)
[2019-03-20] MEDS: Cyanocobalamin (B-12) 1,000 MCG TABLET PO SCH (10:31)
[2019-03-21 07:19] LABS: Basophils % 0.2 %; Eosinophils # 0.1 K/mcL (0.0-0.6); Hematocrit 31.6 % (37.5-50.1); Hemoglobin 10.9 g/dL (12.9-16.9); Immature Granulocytes % 0.3 % (0-4); Lymphocytes # 0.5 K/mcL (0.6-4.6); Lymphocytes % 8.6 %; Mean Corpuscular HGB Conc 34.5 g/dL (31.6-35.5); Mean Corpuscular Hemoglobin 31.4 pg (28.0-33.3); Mean Corpuscular Volume 91.1 fL (83.0-100.0); Mean Platelet Volume 10.7 fL (9.4-12.4); Monocytes # 0.6 K/mcL (0.0-1.3); Monocytes % 9.3 %; Neutrophils # 4.9 K/mcL (1.6-8.9); Platelet Count 163 K/mcL (140-400); Red Blood Count 3.47 M/mcL (4.19-5.50); Red Cell Distribution Width 14.2 % (11.5-14.5); Segmented Neutrophils % 80.6 %
[2019-03-21 07:34] LABS: BUN/Creatinine Ratio 17 (6-26); Blood Urea Nitrogen 11 mg/dL (8-23); Calcium 8.5 mg/dL (8.6-10.3); Carbon Dioxide 30 mEq/L (23-29); Chloride 98 mEq/L (98-107); Glucose 120 mg/dL (70-105); Magnesium 1.7 mg/dL (1.6-2.6); Osmolality,Calculated 283 (280-300); Phosphorous 2.3 mg/dL (2.7-4.5); Potassium 3.7 mEq/L (3.5-5.1); Sodium 136 mEq/L (136-145); eGFR For African Americans > 60 (> 60); eGFR For Non-African Americans > 60 (> 60)
[2019-03-21] MEDS: Cyanocobalamin (B-12) 1,000 MCG TABLET PO SCH (07:54)
[2019-03-21] MEDS: Cholecalciferol (D-3) 1,000 UNIT (25MCG) TABLET PO SCH (07:54)
[2019-03-22 04:54] LABS: Basophils % 0.4 %; Eosinophils # 0.1 K/mcL (0.0-0.6); Eosinophils % 1.1 %; Hematocrit 32.5 % (37.5-50.1); Hemoglobin 11.2 g/dL (12.9-16.9); Immature Granulocytes % 0.4 % (0-4); Lymphocytes # 0.5 K/mcL (0.6-4.6); Lymphocytes % 8.4 %; Mean Corpuscular HGB Conc 34.5 g/dL (31.6-35.5); Mean Corpuscular Hemoglobin 31.7 pg (28.0-33.3); Mean Corpuscular Volume 92.1 fL (83.0-100.0); Mean Platelet Volume 10.5 fL (9.4-12.4); Monocytes # 0.5 K/mcL (0.0-1.3); Monocytes % 8.9 %; Neutrophils # 4.5 K/mcL (1.6-8.9); Platelet Count 180 K/mcL (140-400); Red Blood Count 3.53 M/mcL (4.19-5.50); Segmented Neutrophils % 80.8 %; White Blood Count 5.6 K/mcL (4.3-11.1)
[2019-03-22 05:26] LABS: BUN/Creatinine Ratio 18 (6-26); Blood Urea Nitrogen 11 mg/dL (8-23); Calcium 8.8 mg/dL (8.6-10.3); Carbon Dioxide 27 mEq/L (23-29); Chloride 102 mEq/L (98-107); Glucose 113 mg/dL (70-105); Magnesium 1.8 mg/dL (1.6-2.6); Osmolality,Calculated 282 (280-300); Phosphorous 3.3 mg/dL (2.7-4.5); Potassium 3.9 mEq/L (3.5-5.1); Sodium 136 mEq/L (136-145); eGFR For African Americans > 60 (> 60); eGFR For Non-African Americans > 60 (> 60)
[2019-03-22] MEDS: Cyanocobalamin (B-12) 1,000 MCG TABLET PO SCH (08:00)
[2019-03-22] MEDS: Cholecalciferol (D-3) 1,000 UNIT (25MCG) TABLET PO SCH (08:01)
[2019-03-23 06:13] LABS: Basophils % 0.5 %; Eosinophils # 0.1 K/mcL (0.0-0.6); Eosinophils % 1.5 %; Hematocrit 33.9 % (37.5-50.1); Hemoglobin 11.5 g/dL (12.9-16.9); Immature Granulocytes % 0.5 % (0-4); Lymphocytes # 0.5 K/mcL (0.6-4.6); Mean Corpuscular HGB Conc 33.9 g/dL (31.6-35.5); Mean Corpuscular Hemoglobin 31.4 pg (28.0-33.3); Mean Corpuscular Volume 92.6 fL (83.0-100.0); Mean Platelet Volume 10.5 fL (9.4-12.4); Monocytes # 0.4 K/mcL (0.0-1.3); Monocytes % 10.6 %; Platelet Count 210 K/mcL (140-400); Red Blood Count 3.66 M/mcL (4.19-5.50); Red Cell Distribution Width 13.8 % (11.5-14.5); Segmented Neutrophils % 73.9 %; White Blood Count 4.1 K/mcL (4.3-11.1)
[2019-03-23 06:33] LABS: BUN/Creatinine Ratio 23 (6-26); Blood Urea Nitrogen 14 mg/dL (8-23); Calcium 9.2 mg/dL (8.6-10.3); Carbon Dioxide 27 mEq/L (23-29); Chloride 101 mEq/L (98-107); Glucose 106 mg/dL (70-105); Magnesium 1.8 mg/dL (1.6-2.6); Osmolality,Calculated 289 (280-300); Potassium 3.9 mEq/L (3.5-5.1); Sodium 139 mEq/L (136-145); eGFR For African Americans > 60 (> 60); eGFR For Non-African Americans > 60 (> 60)
[2019-03-23] MEDS: Cholecalciferol (D-3) 1,000 UNIT (25MCG) TABLET PO SCH (09:13)
[2019-03-23] MEDS: Cyanocobalamin (B-12) 1,000 MCG TABLET PO SCH (09:13)
[2019-03-23] MEDS: Haloperidol Oral Conc 10 MG/5 ML UDC PO SCH ×2 (13:54→21:15)
[2019-03-23 19:19] VITALS: BP 105/72
[2019-03-24] MEDS: Haloperidol Oral Conc 10 MG/5 ML UDC PO SCH ×2 (02:25→09:44)
[2019-03-24] MEDS ORDERED: Haloperidol Oral Conc 10 MG/5 ML UDC PO SCH (09:43)
== END 2019-03-24 13:27 | DRG 378 ==
LOC: 3ANU 11:07 → EMEROOARM 11:07 → SUATTDRO 14:43 → 3ANU 15:42 → SUATTDRO 03-16 20:05
PROVIDERS: ADMIT Family Medicine; ATTEND Pharmacist